=== PATIENT | male | born 1990 | race Hispanic/Latino ===

== ENCOUNTER 2024-04-05 21:12 | Emergency (ER) | payer BC ==
[~2024-04-05] VITALS: Ht 165.1 cm; Wt 90.3 kg
[~2024-04-05 21:12] MED LIST: CEPH500B PO
--- NOTE | 2024-04-05 21:23 | ERN ---
ED Note History of Present Illness Stated Complaint: C/O LACERATION TO RT EAR LOBE, ABRASION TO RT WRIS Chief Complaint: Laceration/Avulsion Time Seen by MD: 21:16 Dictation: PATIENT IS A 34-YEAR-OLD MALE COMING IN TODAY WITH COMPLAINTS OF FALLING OFF A LADDER THREE STEPS AND HIT THE SIDE OF HIS HEAD AND HAS A LACERATION THROUGH THE EARLOBE. ONSET1 HOUR PRIOR TO ARRIVAL. NO LOC NO NAUSEA VOMITING HE STATES HE WENT TO A FRIEND'S [place] AND HE PUT SOME POWDER ON IT TO STOP THE BLEEDING. LAST TETANUS SHOT IS UNKNOWN. NO OTHER COMPLAINTS OF VOICE. Allergies: Coded Allergies: No Known Allergies (Unverified Allergy, Unknown, 02/25/24) Home Meds Active Scripts Cephalexin Monohydrate (Keflex) 500 Mg Cap, 500 MG PO QID for 7 Days, #28 CAP Prov:VERNA BUTTERFIELD MD 02/25/24 Past Medical History Past Medical History: No Pertinent History Surgical History: None PSYCH History: no pertinent psych hx RN Note Reviewed/Agreed w/PFSH: Yes Review of System Dictation CONSTITUTIONAL: NEGATIVE EXCEPT FOR HPI HEAD/FACE: NEGATIVE EXCEPT FOR HPI EENT: NEGATIVE EXCEPT FOR HPI RIGHT EAR LACERATION EAR MR EXTERNAL EAR INOPERABLE RESPIRATORY: NEGATIVE EXCEPT FOR HPI GASTROINTESTINAL/ABDOMINAL: NEGATIVE EXCEPT FOR HPI GENITOURINARY: NEGATIVE EXCEPT FOR HPI MUSCULOSKELETAL: NEGATIVE EXCEPT FOR HPI INTEGUMENTARY: NEGATIVE EXCEPT FOR HPI NEUROLOGICAL/PSYCH: NEGATIVE EXCEPT FOR HPI HEMATOLOGIC/LYMPHATIC: NEGATIVE EXCEPT FOR HPI ALL SYSTEMS NEGATIVE, EXCEPT NOTED ABOVE. 13 POINT REVIEW OF SYSTEMS ASSESSED AND ALL NEGATIVE EXCEPT FOR ABOVE. Initial Vital Sign VS Vital Signs Date Time Temp Pulse Resp B/P (MAP) Pulse Ox O2 Delivery O2 Flow Rate FiO2 04/05/24 21:14 99.1 84 20 129/82 99 Room Air Physical Exam Dictation VITAL SIGNS REVIEWED GENERAL APPEARANCE: ALERT, ORIENTED X 3, MILD ACUTE DISTRESS, WELL DEVELOPED, NOURISHED. HEAD AND FACE: NON-TRAUMATIC. EYES: PERRL, PINK CONJUNCTIVAS, EYELID NO TRAUMA, ANTERIOR CHAMBER WITH ARCUS SENILIS. EARS: PINNAS INTACT AND PATIENT HAS APPROXIMATELY 3 CM LACERATION TO RIGHT EAR THAT EXTENDS FROM THE INTERTRAGIC AREA THROUGH THE LOBE. NOSE: NO DISCHARGE, NO BLEEDING. OROPHARYNX: MOUTH NORMAL, TONGUE PINK, PHARYNX CLEAR,NO ERYTHEMA, TONSILS NO EXUDATES, NO ABSCESSES NOTED, MUCOUS MEMBRANE MOIST NECK: SUPPLE, NON-TENDER, NO THYROMEGALY, NO MASSES, NO JVD, NO BRUITS BREAST:DEFERRED CHEST:NO TENDERNESS, NO CREPITUS, NO PARADOXICAL MOVEMENT, NO RETRACTIONS LUNGS:CLEAR, WELL-VENTILATED, SYMMETRIC, NO RALES, NO WHEEZING, NO RHONCHI, NO STRIDOR, GOOD BREATH SOUNDS BILATERALLY HEART: REGULAR RATE, REGULAR RHYTHM, NO MURMUR, NO GALLOPS VASCULAR: NO PERIPHERAL EDEMA, ABDOMEN: SOFT, POSITIVE BOWEL SOUNDS, NONDISTENDED, NO GUARDING, NONTENDER, NO REBOUND, NO MASSES NO HEPATOMEGALY, NO SPLENOMEGALY, NO GOLDBERG'S S IGN, NO HERNIAS. RECTAL: DEFERRED GENITAL: DEFERRED NEUROLOGICAL: NORMAL SPEECH, MOTOR FUNCTION INTACT, SENSORY FUNCTION INTACT MUSCULOSKELETAL: NECK NONTENDER, FULL RANGE OF MOTION, BACK NONTENDER, FULL RANGE OF MOTION, EXTREMITIES: NONTENDER, FULL RANGE OF MOTION SKIN: COLOR PINK, DRY, NO TURGOR, NO RASH, NO LACERATIONS, NO ABRASIONS, NO CONTUSIONS. LYMPHATIC: DEFERRED Results (Laboratory/Radiology) Laboratory/Radiology Distal distal right radial fracture mildly displaced no reduction needed Labs Reviewed?: Yes ED Course ED Course Orders Procedure Category Date Status Time Lidocaine Hcl 1% 20ml PHA 04/05/24 In Process Vial (Lidocaine Hc 21:30 Lidocaine Hcl 1% 20ml PHA 04/05/24 In Process Vial (Lidocaine Hc 21:30 Ibuprofen 800 Mg Tab PHA 04/05/24 Complete (Motrin) 21:30 Neomy PHA 04/05/24 Complete Sulf/Bacitra/Polymyxin 21:30 Cephalexin 500 Mg PHA 04/05/24 Complete Capsule (Keflex 500 Mg 21:30 Wrist Comp 3+Vws Rt RAD 04/05/24 Taken 23:03 Current Medications Medications (Trade) Dose Ordered Sig/Tatianna Route PRN Reason Start Time Stop Time Status Last Admin Dose Admin Cephalexin (Keflex 500 MG CAPS) 1,000 mg ONCE ONCE PO 04/05/24 21:30 04/05/24 21:31 DC 04/05/24 21:32 Ibuprofen (moTRIN) 800 mg ONCE ONCE PO 04/05/24 21:30 04/05/24 21:31 DC 04/05/24 21:32 Lidocaine HCl (Lidocaine HCl 1% 20ml Vial) ONCE INJ 04/05/24 21:30 05/05/24 21:29 Lidocaine HCl (Lidocaine HCl 1% 20ml Vial) 10 ml ONCE INJ 04/05/24 21:30 05/05/24 21:29 04/05/24 23:10 Neomycin/ Polymyxin/ Bacitracin (Triple Antibiotic Ointment) 1 appl ONCE ONCE TP 04/05/24 21:30 04/05/24 21:31 DC 04/05/24 21:32 Vital Signs Date Time Temp Pulse Resp B/P (MAP) Pulse Ox O2 Delivery O2 Flow Rate FiO2 04/05/24 21:14 99.1 84 20 129/82 99 Room Air 0035, volar splint placed by nurse, distal neurovascular CMS intact post placement. Patient will be discharged home to follow up with of Orthopedics next 2-3 days. Medical Decision Making MDM Medical discharge making based on laceration repair to right ear and x-ray of right wrist. Patient has a mildly displaced distal right radial fracture placed in a volar splint Neurovascular CMS intact post placement Patient given laceration care Instructions Provided the name of Orthopedics on-call Pain management Procedure Procedure Dictation: [id number], PROCEDURE EXPLAINED TO PATIENT HE AGREED TO PROCEED RIGHT EAR WAS PREPPED STERILELY USED 12 ML 1% LIDOCAINE PLAIN FOR FOR RADICULAR BLOCK PATIENT HAD 2.5 CM LACERATION THRU INCISURA AND LOBE, PARTIAL-THICKNESS LACERATION CLOSED WITH EIGHT 5.0 SIMPLE INTERRUPTED SUTURES SINGLE-LAYER CLOSURE MINIMAL BLEEDING PATIENT TOLERATED WELL PATIENT WAS STRONGLY WARNED THAT BECAUSE OF THE AREA AROUND THE CARTILAGE, THE RISK OF CAULIFLOWER EAR AND SCAR TISSUE FORMATION WAS INCREASED DX & DISP Disposition: Discharge Departure Impression: Primary Impression: Laceration of right external ear Additional Impressions: Fracture of distal end of right radius, Multiple abrasions, Fall from ladder Condition: Stable Scripts Cephalexin (Cephalexin) 500 Mg Tablet 1 TAB PO TID for 10 Days, #30 TAB 0 Refills Prov: EVERARDO HARMON PROVIDER RELATIONS CONSULTANT 04/06/24 Acetaminophen with Codeine (Acetaminophen-Cod #3 Tablet) 300 Mg-30 Mg Tablet 1 TAB PO Q4H PRN for Moderate pain, #20 TAB 0 Refills Prov: EVERARDO HARMON PROVIDER RELATIONS CONSULTANT 04/06/24 Additional Instructions: Follow-up with primary care provider in 1 to 2 days. Take medications as directed here in the emergency room. Okay to continue home medications unless otherwise discussed during your visit in the emergency room today. Return to your nearest emergency room if symptoms worsen or if there is no improvement. Call 911 if you need immediate assistance. Take Tylenol or Motrin [id number] as needed and if no contraindications are present. Increase oral hydration. A wound culture or urine culture was ordered here in the emergency room department please follow-up with primary care provider and advise them to get repeat ports from our facility. If you had any Joesph wrap/splints that were applied here, please do not remove them until you see your primary care or specialty. Take antibiotics as directed until gone., cool compresses to right wrist three to 4 times a day. Apply triple antibiotic ointment/[id number] 3 times a day for five days to your laceration repair to your ear. Sutures out in seven days., no weight-bearing to right arm until cleared by orthopedic surgeon, call for an appointment tomorrow. Referrals: MINDY IRIZARRY MD (PCP) CHRISTY MEEK MD Time of Disposition: 00:37 I have reviewed the case, and I agree with, Diagnosis and Plan EVERARDO HARMON NP Apr 05, 2024 21:23
[2024-04-05] MEDS: LIDOCAINE HCL 1% 20 ML VIAL INJ SCH ×2 (21:30→23:10)
[2024-04-05] MEDS: cePHALexin 500 MG CAPSULE PO ONE (21:32)
[2024-04-05] MEDS: ibuPROFEN 800 MG TAB PO ONE (21:32)
[2024-04-05] MEDS: NEOMY SULF/BACITRA/POLYMYXIN B 1 EACH PACKET TP ONE (21:32)
[2024-04-06] MEDS ORDERED: CEPH500T PO (00:39)
[2024-04-06] MEDS ORDERED: ACET-2079 PO (00:39)
[2024-04-06 01:00] VITALS: BP 122/78; PULSE 86; RESP 16; TEMP 98.8; O2SAT 99
--- NOTE | 2024-04-06 08:28 | HMCIMG ---
WRIST COMP 3+VWS RT REASON: RIGHT WRIST PAIN STATUS POST FALL FROM LADDER TECHNIQUE: 3 views were obtained. FINDINGS: There is comminuted fracture of the distal right radial metaphysis. There is mild posterior angulation. Distal ulna appears intact as do the carpal bones. IMPRESSION: 1. Mildly comminuted and mildly angulated fracture distal right radial metaphysis.
== END 2024-04-06 01:04 | disposition home or self-care (01) ==
LOC: EDH 21:12
DX: S52.591A Other fractures of lower end of right radius, initial encounter for closed fracture (principal); S01.311A Laceration without foreign body of right ear, initial encounter; Z79.899 Other long term (current) drug therapy; W11.XXXA Fall on and from ladder, initial encounter; Y93.89 Activity, other specified; Y92.89 Other specified places as the place of occurrence of the external cause; Y99.8 Other external cause status
CPT/HCPCS: 12013; 29125; 73110; 99283